=== PATIENT | male | born 1985 | race Caucasian/White ===

== ENCOUNTER 2017-06-10 10:10 | Emergency (ER) | payer BC, OTHER ==
[2017-06-10 11:02] LABS: ABSOLUTE EOSINOPHILS # (AUTO) 0.1 10^3/uL (0.0-0.6); ABSOLUTE LYMPHOCYTES (AUTO) 0.9 10^3/uL (0.5-4.7); ABSOLUTE MONOCYTES (AUTO) 0.6 10^3/uL (0.1-1.4); ABSOLUTE NEUT (AUTO) 5.5 10^3/uL (1.7-8.2); BASOPHILS % (AUTO) 0.5 % (0-2); EOSINOPHILS % (AUTO) 0.8 % (0-6); HEMATOCRIT 46.2 % (37.9-51.0); HEMOGLOBIN 16.1 g/dL (13.5-17.0); LYMPHOCYTES % (AUTO) 12.3 % (13-45); MEAN CORPUSCULAR HEMOGLOBIN 33.2 pg (27.0-33.4); MEAN CORPUSCULAR HGB CONC 34.9 g/dL (32.0-36.0); MEAN CORPUSCULAR VOLUME 95 fl (80-97); MONOCYTES % (AUTO) 7.9 % (3-13); PLATELET COUNT 251 10^3/uL (150-450); RED BLOOD COUNT 4.86 10^6/uL (4.35-5.55); RED CELL DISTRIBUTION WIDTH 12.8 % (11.5-14.0); SEGMENTED NEUTROPHILS % (AUTO) 78.5 % (42-78); TOTAL CELLS COUNTED % (AUTO) 100 %; WHITE BLOOD COUNT 7.1 10^3/uL (4.0-10.5)
[2017-06-10 11:11] LABS: APPEARANCE,URINE CLEAR; BILIRUBIN,URINE NEGATIVE (NEGATIVE); COLOR,URINE YELLOW; GLUCOSE, URINE NEGATIVE (NEGATIVE); KETONES,URINE NEGATIVE (NEGATIVE); LEUKOCYTE ESTERASE,URINE LARGE (NEGATIVE); NITRITE,URINE NEGATIVE (NEGATIVE); PROTEIN,URINE NEGATIVE (NEGATIVE); URINE SPECIFIC GRAVITY 1.019; UROBILINOGEN,URINE NEGATIVE mg/dL (<2.0)
[2017-06-10 11:21] LABS: ALANINE AMINOTRANSFERASE 36 U/L (21-72); ALBUMIN 4.6 g/dL (3.5-5.0); ALKALINE PHOSPHATASE 56 U/L (38-126); ANION GAP 14 (5-19); ASPARTATE AMINO TRANSFERASE 29 U/L (17-59); BILIRUBIN,DIRECT 0.2 mg/dL (0.0-0.4); BILIRUBIN,TOTAL 1.6 mg/dL (0.2-1.3); BLOOD UREA NITROGEN 11 mg/dL (7-20); CALCIUM 9.9 mg/dL (8.4-10.2); CARBON DIOXIDE 32 mmol/L (22-30); CHLORIDE 99 mmol/L (98-107); GLUCOSE 121 mg/dL (75-110); LIPASE 81.3 U/L (23-300); POTASSIUM 4.5 mmol/L (3.6-5.0); SODIUM 144.5 mmol/L (137-145); TOTAL PROTEIN 7.3 g/dL (6.3-8.2)
[2017-06-10] MEDS ORDERED: AZITHROMYCIN 1 GM SUSP PACKET PO ONE (11:34)
[2017-06-10] MEDS ORDERED: LIDOCAINE 1% INJ-PF (10 MG/ML) 30 ML SDV INFIL ONE (11:34)
[2017-06-10] MEDS ORDERED: CEFTRIAXONE INJ 250 MG VIAL IM ONE (11:34)
--- NOTE | 2017-06-10 11:34 | ER Document Report ---
ED General - General Chief Complaint: Vomiting Stated Complaint: VOMITING Time Seen by Provider: 06/10/17 10:27 Mode of Arrival: Ambulatory Information source: Patient Notes: Patient states on Saturday he ate some bad food. He states since that time he has had nausea vomiting and diarrhea. He states is also had abdominal cramping. He denies any urinary symptoms. He states the cramping has been intermittent and nothing makes it better or worse. He does not know of any radiation symptoms. Symptoms have been moderate. He is also had some fever and chills. TRAVEL OUTSIDE OF THE [place] IN LAST 30 DAYS: No - Related Data Allergies/Adverse Reactions: No Known Allergies Allergy (Verified 06/13/15 14:28) Past Medical History - Social History Smoking Status: Never Smoker Frequency of alcohol use: 2-3 beers daily Drug Abuse: Marijuana Family History: Reviewed & Not Pertinent Patient has suicidal ideation: No Patient has homicidal ideation: No Renal/ Medical History: Denies: Hx Peritoneal Dialysis Past Surgical History: Reports: Hx Genitourinary Surgery - Circumcised - Immunizations Hx Diphtheria, Pertussis, Tetanus Vaccination: Yes Review of Systems - Review of Systems Constitutional: Chills, Malaise Cardiovascular: denies: Chest pain, Palpitations Respiratory: denies: Cough, Short of breath -: Yes All other systems reviewed and negative Physical Exam - Vital signs Vitals: Temp 96.1 F L 06/10/17 10:13 Interpretation: Normal - General General appearance: Appears well, Alert - HEENT Head: Normocephalic, Atraumatic Eyes: Normal Pupils: PERRL - Respiratory Respiratory status: No respiratory distress Chest status: Nontender Breath sounds: Normal Chest palpation: Normal - Cardiovascular Rhythm: Regular Heart sounds: Normal auscultation Murmur: No - Abdominal Inspection: Normal Distension: No distension Bowel sounds: Normal Tenderness: Nontender Organomegaly: No organomegaly - Back Back: Normal, Nontender - Extremities General upper extremity: Normal inspection, Nontender, Normal color, Normal ROM , Normal temperature General lower extremity: Normal inspection, Nontender, Normal color, Normal ROM , Normal temperature, Normal weight bearing. No: Tram's sign - Neurological Neuro grossly intact: Yes Cognition: Normal Orientation: AAOx4 Bran Coma Scale Eye Opening: Spontaneous Bran Coma Scale Verbal: Oriented [place] Coma Scale Motor: Obeys Commands Bran Coma Scale Total: 15 Speech: Normal Motor strength normal: LUE, RUE, LLE, RLE Sensory: Normal - Psychological Associated symptoms: Normal affect, Normal mood - Skin Skin Temperature: Warm Skin Moisture: Dry Skin Color: Normal Course - Re-evaluation Re-evalutation: 06/10/17 11:34 Patient has evidence of a urinary tract infection. The most common cause would appear to be sexually transmitted disease in a patient of this age. Therefore I will treat him with Rocephin and Zithromax. - Vital Signs Vital signs: Temp Pulse Resp BP Pulse Ox 96.1 F L 71 20 129/96 H 99 06/10/17 10:13 06/10/17 10:15 06/10/17 10:15 06/10/17 10:15 06/10/17 10:15 - Laboratory Result Diagrams: 06/10/17 10:40 06/10/17 10:40 Laboratory results interpreted by me: 06/10/17 06/10/17 06/10/17 10:40 10:40 10:40 Seg Neutrophils % 78.5 H Lymphocytes % 12.3 L Carbon Dioxide 32 H Glucose 121 H Total Bilirubin 1.6 H Ur Leukocyte Esterase LARGE H Discharge - Discharge Clinical Impression: UTI (urinary tract infection) Qualifiers: Urinary tract infection type: site unspecified Hematuria presence: without hematuria Qualified Code(s): N39.0 - Urinary tract infection, site not specified Condition: Stable Disposition: HOME, SELF-CARE Instructions: Urinary Tract Infection ([facility]) Additional Instructions: If you have any further urinary symptoms such as pain with urination, blood in the urine or fevers-that is important that you follow-up with your primary care physician or return to the emergency department. Forms: Return to Work
[2017-06-10 12:00] VITALS: BP 127/91
== END 2017-06-10 12:00 | disposition home or self-care (01) ==
LOC: ER 10:10
DX: N39.0 Urinary tract infection, site not specified (principal); R11.2 Nausea with vomiting, unspecified; R19.7 Diarrhea, unspecified; R10.9 Unspecified abdominal pain; R50.9 Fever, unspecified; R53.81 Other malaise
CPT/HCPCS: 99283; 96372; 36415; 83690; 85025; 80053; 81001; J3490; Q0144; J0696

== ENCOUNTER 2017-12-04 11:07 | Emergency (ER) | payer OTHER ==
[2017-12-04] MEDS ORDERED: PREDNISONE 20 MG TABLET PO ONE (13:15)
--- NOTE | 2017-12-04 13:17 | ER Document Report ---
HPI - HPI Patient complains to provider of: back rash Onset: Other - 1.5 weeks Pain Level: 4 Context: 32 yo male with pruritic papular back rash for 1.5 weeks, spreading to tops of shoulders, upper chest. no known contact. No hx STI, symphillis. no chest pain or fever. No recent illness. Exacerbated by: Denies Relieved by: Denies - ROS ROS below otherwise negative: Yes Systems Reviewed and Negative: Yes All other systems reviewed and negative - EENT EENT: DENIES: Sore Throat, Ear Pain, Eye problems - NEURO Neurology: DENIES: Headache, Weakness, Vision blurred - CARDIOVASCULAR Cardiovascular: DENIES: Chest pain - RESPIRATORY Respiratory: DENIES: Trouble Breathing, Coughing - GASTROINTESTINAL Gastrointestinal: DENIES: Abdominal Pain, Black / Bloody Stools - URINARY Urinary: DENIES: Dysuria, Urgency, Frequency - MUSCULOSKELETAL Musculoskeletal: DENIES: Extremity pain Past Medical History - General Information source: Patient - Social History Smoking Status: Current Some Day Smoker Chew tobacco use (# tins/day): No Frequency of alcohol use: Occasional Drug Abuse: None Family History: Reviewed & Not Pertinent Patient has suicidal ideation: No Patient has homicidal ideation: No Renal/ Medical History: Denies: Hx Peritoneal Dialysis Past Surgical History: Reports: Hx Genitourinary Surgery - Circumcised - Immunizations Hx Diphtheria, Pertussis, Tetanus Vaccination: Yes Vertical Provider Document - CONSTITUTIONAL Agree With Documented VS: Yes Exam Limitations: No Limitations General Appearance: No Apparent Distress - INFECTION CONTROL TRAVEL OUTSIDE OF THE [place] IN LAST 30 DAYS: No - DERM Integumentary: Rash - pink papular back/trunk rash, no herald patch. Course - Vital Signs Vital signs: Temp Pulse Resp BP Pulse Ox 98.1 F 74 16 127/76 H 96 12/04/17 11:12 12/04/17 11:12 12/04/17 11:12 12/04/17 11:12 12/04/17 11:12 Discharge - Discharge Clinical Impression: back dermatitis, pruritis Condition: Good Disposition: HOME, SELF-CARE Instructions: Contact Dermatitis ([facility]), Use of Diphenhydramine, Steroid Medication Additional Instructions: dove unscented soap dye, scent free detergents oral steroids benadryl for the itch Keep your nails clean and short to prevent secondary infection Return to the emergency room for worsening symptoms Prescriptions: Prednisone [Deltasone 10 mg Tablet] 10 mg PO ASDIR PRN #21 tablet PRN Reason: Forms: Return to Work Referrals: MIRZA GUILLEN DO [ACTIVE STAFF] - Follow up as needed
[2017-12-04 13:31] VITALS: BP 123/87
== END 2017-12-04 13:31 | disposition home or self-care (01) ==
LOC: ER 11:07
DX: L30.9 Dermatitis, unspecified (principal); L29.9 Pruritus, unspecified; R21 Rash and other nonspecific skin eruption; F17.200 Nicotine dependence, unspecified, uncomplicated
CPT/HCPCS: 99282; J7512

== ENCOUNTER 2018-02-13 09:42 | Emergency (ER) | payer BC, OTHER ==
[2018-02-13] MEDS ORDERED: ONDANSETRON HCL INJ/PF 4 MG/2 ML SDV IV ONE (09:56)
[2018-02-13] MEDS ORDERED: RINGERS SOLUTION,LACTATED 1,000 ML IV ONE (09:56)
--- NOTE | 2018-02-13 09:59 | ER Document Report ---
ED Medical Screen (RME) - General Chief Complaint: Abdominal Pain Stated Complaint: STOMACH PAINS/FEVER Time Seen by Provider: 02/13/18 09:56 Notes: Patient says he has had diarrhea for the past 3 days, since . He had watery stools and some green color to them, but has not seen any blood in the bowel movements. Says he is having bowel movement about every 45 minutes. Has some nausea but has not vomited. Has felt feverish. Complains of a headache. Patient says he drank a glass of tea that had been in the refrigerator for about a month, but he was already having the beginning of his symptoms before he drank that tea. Patient has not had any abdominal surgeries. Is not on any medications for any medical conditions. TRAVEL OUTSIDE OF THE [place] IN LAST 30 DAYS: No - Related Data Allergies/Adverse Reactions: No Known Allergies Allergy (Verified 02/13/18 09:43) Past Medical History - Social History Chew tobacco use (# tins/day): No Frequency of alcohol use: Occasional Drug Abuse: Marijuana Renal/ Medical History: Denies: Hx Peritoneal Dialysis Past Surgical History: Reports: Hx Genitourinary Surgery - Circumcised, Hx Orthopedic Surgery - right leg - Immunizations Hx Diphtheria, Pertussis, Tetanus Vaccination: Yes Physical Exam - Vital signs Vitals: Temp Pulse Resp BP Pulse Ox 97.8 F 85 18 115/80 99 02/13/18 09:46 02/13/18 09:46 02/13/18 09:46 02/13/18 09:46 02/13/18 09:46 Course - Vital Signs Vital signs: Temp Pulse Resp BP Pulse Ox 97.8 F 85 18 115/80 99 02/13/18 09:46 02/13/18 09:46 02/13/18 09:46 02/13/18 09:46 02/13/18 09:46
[2018-02-13 10:57] LABS: ABSOLUTE LYMPHOCYTES (AUTO) 1.1 10^3/uL (0.5-4.7); ABSOLUTE MONOCYTES (AUTO) 0.8 10^3/uL (0.1-1.4); ABSOLUTE NEUT (AUTO) 7.4 10^3/uL (1.7-8.2); BASOPHILS % (AUTO) 0.3 % (0-2); EOSINOPHILS % (AUTO) 0.5 % (0-6); HEMATOCRIT 42.9 % (37.9-51.0); HEMOGLOBIN 15.1 g/dL (13.5-17.0); LYMPHOCYTES % (AUTO) 11.4 % (13-45); MEAN CORPUSCULAR HEMOGLOBIN 33.7 pg (27.0-33.4); MEAN CORPUSCULAR HGB CONC 35.1 g/dL (32.0-36.0); MEAN CORPUSCULAR VOLUME 96 fl (80-97); MONOCYTES % (AUTO) 8.5 % (3-13); PLATELET COUNT 232 10^3/uL (150-450); RED BLOOD COUNT 4.47 10^6/uL (4.35-5.55); RED CELL DISTRIBUTION WIDTH 12.2 % (11.5-14.0); SEGMENTED NEUTROPHILS % (AUTO) 79.3 % (42-78); TOTAL CELLS COUNTED % (AUTO) 100 %; WHITE BLOOD COUNT 9.4 10^3/uL (4.0-10.5)
[2018-02-13 11:11] LABS: ALANINE AMINOTRANSFERASE 17 U/L (21-72); ALBUMIN 4.4 g/dL (3.5-5.0); ALKALINE PHOSPHATASE 46 U/L (38-126); ANION GAP 7 (5-19); ASPARTATE AMINO TRANSFERASE 20 U/L (17-59); BILIRUBIN,DIRECT 0.2 mg/dL (0.0-0.4); BILIRUBIN,TOTAL 0.6 mg/dL (0.2-1.3); BLOOD UREA NITROGEN 10 mg/dL (7-20); CALCIUM 9.5 mg/dL (8.4-10.2); CARBON DIOXIDE 28 mmol/L (22-30); CHLORIDE 104 mmol/L (98-107); GLUCOSE 104 mg/dL (75-110); LIPASE 103.8 U/L (23-300); POTASSIUM 4.3 mmol/L (3.6-5.0); SODIUM 139.3 mmol/L (137-145); TOTAL PROTEIN 7.1 g/dL (6.3-8.2)
[2018-02-13 11:15] LABS: APPEARANCE,URINE SLIGHTLY-CLOUDY; BILIRUBIN,URINE NEGATIVE (NEGATIVE); CALCIUM OXALATE CRYSTALS,URINE MANY /HPF; GLUCOSE, URINE NEGATIVE (NEGATIVE); KETONES,URINE NEGATIVE (NEGATIVE); LEUKOCYTE ESTERASE,URINE NEGATIVE (NEGATIVE); NITRITE,URINE NEGATIVE (NEGATIVE); PROTEIN,URINE 30 mg/dL (NEGATIVE); UROBILINOGEN,URINE NEGATIVE mg/dL (<2.0)
[2018-02-13 11:20] LABS: COLOR,URINE YELLOW
[2018-02-13] MEDS ORDERED: NORMAL SALINE 1000 ML 1,000 ML IV ONE (11:22)
[2018-02-13] MEDS ORDERED: KETOROLAC TROMETHAMINE INJ/PF 30 MG/1 ML SDV IV ONE (11:22)
[2018-02-13 13:17] VITALS: BP 117/65
--- NOTE | 2018-02-13 13:38 | ER Document Report ---
ED General - General Chief Complaint: Abdominal Pain Stated Complaint: STOMACH PAINS/FEVER Time Seen by Provider: 02/13/18 09:56 TRAVEL OUTSIDE OF THE [place] IN LAST 30 DAYS: No - HPI Patient complains to provider of: Abdominal pain diarrhea subjective fevers Notes: Patient coming in for the above-stated symptoms. Patient was evaluated by in triage his note is provided below Patient says he has had diarrhea for the past 3 days, since . He had watery stools and some green color to them, but has not seen any blood in the bowel movements. Says he is having bowel movement about every 45 minutes. Has some nausea but has not vomited. Has felt feverish. Complains of a headache. Patient says he drank a glass of tea that had been in the refrigerator for about a month, but he was already having the beginning of his symptoms before he drank that tea. Patient has not had any abdominal surgeries. Is not on any medications for any medical conditions. Patient does cooperate with the story. Patient denies any recent antibiotics denies any recent travel denies any new pets in the hospital. Upon my evaluation patient is resting comfortably able to provide us with a stool sample laboratory studies are currently pending. A brief review of the patient's medical records available in [facility] was performed - Related Data Allergies/Adverse Reactions: No Known Allergies Allergy (Verified 02/13/18 09:43) Past Medical History - Social History Smoking Status: Current Some Day Smoker Chew tobacco use (# tins/day): No Frequency of alcohol use: Occasional Drug Abuse: Marijuana Family History: Reviewed & Not Pertinent Patient has suicidal ideation: No Patient has homicidal ideation: No Renal/ Medical History: Denies: Hx Peritoneal Dialysis Past Surgical History: Reports: Hx Genitourinary Surgery - Circumcised, Hx Or thopedic Surgery - right leg - Immunizations Hx Diphtheria, Pertussis, Tetanus Vaccination: Yes Review of Systems - Review of Systems Constitutional: No symptoms reported EENT: No symptoms reported Cardiovascular: No symptoms reported Respiratory: No symptoms reported Gastrointestinal: Abdominal pain, Diarrhea Genitourinary: No symptoms reported Male Genitourinary: No symptoms reported Musculoskeletal: No symptoms reported Skin: No symptoms reported Hematologic/Lymphatic: No symptoms reported Neurological/Psychological: No symptoms reported -: Yes All other systems reviewed and negative Physical Exam - Vital signs Vitals: Temp Pulse Resp BP Pulse Ox 97.8 F 85 18 115/80 99 02/13/18 09:46 02/13/18 09:46 02/13/18 09:46 02/13/18 09:46 02/13/18 09:46 Interpretation: Normal - General General appearance: Appears well, Alert - HEENT Head: Normocephalic, Atraumatic Eyes: Normal Pupils: PERRL - Respiratory Respiratory status: No respiratory distress Chest status: Nontender Breath sounds: Normal Chest palpation: Normal - Cardiovascular Rhythm: Regular Heart sounds: Normal auscultation Murmur: No - Abdominal Inspection: Normal Distension: No distension Bowel sounds: Normal Tenderness: Nontender Organomegaly: No organomegaly - Back Back: Normal, Nontender - Extremities General upper extremity: Normal inspection, Nontender, Normal color, Normal ROM, Normal temperature General lower extremity: Normal inspection, Nontender, Normal color, Normal ROM, Normal temperature, Normal weight bearing. No: Tram's sign - Neurological Neuro grossly intact: Yes Cognition: Normal Orientation: AAOx4 Bran Coma Scale Eye Opening: Spontaneous Bran Coma Scale Verbal: Oriented Bran Coma Scale Motor: Obeys Commands [place] Coma Scale Total: 15 Speech: Normal Motor strength normal: LUE, RUE, LLE, RLE Sensory: Normal - Psychological Associated symptoms: Normal affect, Normal mood - Skin Skin Temperature: Warm Skin Moisture: Dry Skin Color: Normal Course - Re-evaluation Re-evalutation: 02/13/18 15:55 The patient presents with abdominal pain without signs of peritonitis or other life-threatening or serious etiology. The patient appears stable for discharge and has been instructed to return immediately if the symptoms worsen in any way, or in 8-12hr if not improved for re-evaluation. The patient has been instructed to return if the symptoms worsen or change in any way. - Vital Signs Vital signs: Temp Pulse Resp BP Pulse Ox 99.0 F 67 16 117/65 97 02/13/18 13:13 02/13/18 13:13 02/13/18 13:13 02/13/18 13:13 02/13/18 13:13 - Laboratory Result Diagrams: 02/13/18 10:00 02/13/18 10:00 Laboratory results interpreted by me: 02/13/18 02/13/18 02/13/18 10:00 10:00 10:00 MCH 33.7 H Seg Neutrophils % 79.3 H Lymphocytes % 11.4 L ALT 17 L Urine Protein 30 H Urine Blood SMALL H Discharge - Discharge Clinical Impression: Abdominal pain Qualifiers: Abdominal location: generalized Qualified Code(s): R10.84 - Generalized abdominal pain Diarrhea Qualifiers: Diarrhea type: unspecified type Qualified Code(s): R19.7 - Diarrhea, unspecified Condition: Good Disposition: HOME, SELF-CARE Instructions: Abdominal Pain ([facility]), Diarrhea, Nonspecific ([facility]), Gastritis ([facility]) Additional Instructions: Your laboratory studies today do not show any critical pathology I recommend that you follow-up with your primary care physician return to ER symptoms worsen take medications as prescribed. Prescriptions: Dicyclomine HCl [Bentyl 20 mg Tablet] 20 mg PO QID #30 tablet Ondansetron [Zofran Odt 4 mg Tablet] 1 - 2 tab PO Q4H PRN #30 tab.rapdis PRN Reason: For Nausea/Vomiting Forms: Return to Work
== END 2018-02-13 13:53 | disposition home or self-care (01) ==
LOC: ER 09:42
DX: R10.84 Generalized abdominal pain (principal); R19.7 Diarrhea, unspecified; R11.0 Nausea; R51 Headache; F17.200 Nicotine dependence, unspecified, uncomplicated; F12.10 Cannabis abuse, uncomplicated
CPT/HCPCS: 99284; 96361; 96374; 96375; 36415; 87045; 87205; 83690; 85025; 80053; 81001; 87493; J1885; J2405; J7030; J7120

== ENCOUNTER 2020-01-31 14:52 | Emergency (ER) | payer OTHER ==
[2020-01-31 14:58] VITALS: BP 156/85
--- NOTE | 2020-01-31 15:16 | ER Document Report ---
ED Extremity Problem, Upper - General Chief Complaint: Arm Injury Stated Complaint: FALL/LEFT ARM PAIN Time Seen by Provider: 01/31/20 15:07 Primary Care Provider: GURJIT SOMMERS MD [ACTIVE STAFF] - Follow up as needed TRAVEL OUTSIDE OF THE [place] IN LAST 30 DAYS: No - HPI Notes: Patient is a 34 y/o male with no medical problems who presents for a left arm injury that occurred four days ago. Patient states he was hanging holden lights and fell from the ladder and slid down the house landing on his left arm. He reports pain to his left wrist and forearm. He denies hitting his head or any other injuries. He denies fever. - Related Data Allergies/Adverse Reactions: No Known Allergies Allergy (Verified 01/31/20 15:06) Past Medical History - General Information source: Patient - Social History Smoking Status: Never Smoker Frequency of alcohol use: None Drug Abuse: None Family History: Reviewed & Not Pertinent Renal/ Medical History: Denies: Hx Peritoneal Dialysis Past Surgical History: Reports: Hx Genitourinary Surgery - Circumcised, Hx Orthopedic Surgery - right leg - Immunizations Hx Diphtheria, Pertussis, Tetanus Vaccination: Yes Review of Systems - Review of Systems Constitutional: No symptoms reported EENT: No symptoms reported Cardiovascular: No symptoms reported Respiratory: No symptoms reported Gastrointestinal: No symptoms reported Genitourinary: No symptoms reported Male Genitourinary: No symptoms reported Musculoskeletal: See HPI Skin: No symptoms reported Hematologic/Lymphatic: No symptoms reported Neurological/Psychological: No symptoms reported Physical Exam - Vital signs Vitals: Temp Pulse Resp BP Pulse Ox 98.2 F 72 20 156/85 H 97 01/31/20 14:58 01/31/20 14:58 01/31/20 14:58 01/31/20 14:58 01/31/20 14:58 - Notes Notes: PHYSICAL EXAMINATION: GENERAL: Well-appearing, well-nourished and in no acute distress. HEAD: Atraumatic, normocephalic. EYES: sclera anicteric, conjunctiva are normal. ENT: Moist mucous membranes. NECK: Normal range of motion LUNGS: Normal work of breathing HEART: 2+ radial pulses bilaterally EXTREMITIES: Mild abrasion to the left forearm extending to the wrist. Limited ROM of the left wrist secondary to pain. Full ROM of the left fingers, hand, elbow and shoulder. Left mid forearm tenderness. No pitting or edema. No cyanosis. NEUROLOGICAL: No focal neurological deficits. Moves all extremities spontaneously and on command. PSYCH: Normal mood, normal affect. SKIN: Warm, Dry, normal turgor, no rashes or lesions noted. Course - Re-evaluation Re-evalutation: Patient is a 34-year-old male who presents with left arm injury that occurred four days ago. Vital signs are within normal limits. On exam, mild abrasion to the left forearm extending to the wrist. Limited ROM of the left wrist secondary to pain. Left wrist and forearm XRs are negative and show no fractures. Patient given IM toradol here in the ED for pain relief. Patient instructed to follow up with ortho if his symptoms do not start to improve. Return precautions and follow up instructions given. Patient understands and is in agreement with the plan. Patient will be discharged home. - Vital Signs Vital signs: Temp Pulse Resp BP Pulse Ox 98.2 F 72 20 156/85 H 97 01/31/20 14:58 01/31/20 14:58 01/31/20 14:58 01/31/20 14:58 01/31/20 14:58 - Laboratory Results Critical Laboratory Results Reviewed: No Critical Results - Radiology Results Radiology Results Interpreted: Forearm X-Ray 01/31/20 15:10 IMPRESSION: No acute fracture or dislocation of the left forearm or wrist. Wrist X-Ray 01/31/20 15:10 IMPRESSION: No acute fracture or dislocation of the left forearm or wrist. Critical Radiology Results Reviewed: No Critical Results Discharge - Discharge Clinical Impression: Left arm pain Condition: Stable Disposition: HOME, SELF-CARE Additional Instructions: Take ibuprofen and tylenol as needed for pain. Follow up with orthopedics if your arm pain does not improve. Return if your arm becomes red, hot, and swollen or if you develop fever, persistent vomiting, chest pain or shortness of breath. Forms: Return to Work Referrals: GURJIT SOMMERS MD [ACTIVE STAFF] - Follow up as needed
--- NOTE | 2020-01-31 16:07 | RADIOLOGY REPORT (SQ) ---
EXAM DESCRIPTION: FOREARM LEFT; WRIST LEFT 3 VIEWS COMPLETED DATE/TIME: 01/31/2020 2:24 pm REASON FOR STUDY: left arm injury COMPARISON: None. NUMBER OF VIEWS: Five views TECHNIQUE: AP and lateral views of the left forearm, AP, lateral and oblique views of the left wrist LIMITATIONS: None. FINDINGS: MINERALIZATION: Normal. BONES: No acute fracture. No worrisome bone lesions. SOFT TISSUES: No obvious swelling or foreign body. OTHER: No other significant finding. IMPRESSION: No acute fracture or dislocation of the left forearm or wrist. TECHNICAL DOCUMENTATION: JOB ID: [id number] 2010 [employer]- All Rights Reserved Reading location - IP/workstation name: [email or web address]
--- NOTE | 2020-01-31 16:07 | RADIOLOGY REPORT (SQ) ---
EXAM DESCRIPTION: FOREARM LEFT; WRIST LEFT 3 VIEWS COMPLETED DATE/TIME: 01/31/2020 2:24 pm REASON FOR STUDY: left arm injury COMPARISON: None. NUMBER OF VIEWS: Five views TECHNIQUE: AP and lateral views of the left forearm, AP, lateral and oblique views of the left wrist LIMITATIONS: None. FINDINGS: MINERALIZATION: Normal. BONES: No acute fracture. No worrisome bone lesions. SOFT TISSUES: No obvious swelling or foreign body. OTHER: No other significant finding. IMPRESSION: No acute fracture or dislocation of the left forearm or wrist. TECHNICAL DOCUMENTATION: JOB ID: [id number] 2010 [employer]- All Rights Reserved Reading location - IP/workstation name: [email or web address]
[2020-01-31] MEDS ORDERED: KETOROLAC TROMETHAMINE 60 MG/2 ML SDV IM ONE (16:16)
== END 2020-01-31 16:48 | disposition home or self-care (01) ==
LOC: ER 14:52
DX: S49.92XA Unspecified injury of left shoulder and upper arm, initial encounter (principal); S50.812A Abrasion of left forearm, initial encounter; W11.XXXA Fall on and from ladder, initial encounter; Y92.007 Garden or yard of unspecified non-institutional (private) residence as the place of occurrence of the external cause
CPT/HCPCS: 99284; 96372; 73090; 73110; J1885